=== PATIENT | female | born 1985 | race Caucasian/White ===

== ENCOUNTER 2022-08-05 16:05 | Emergency (ER) | payer OTHER ==
[2022-08-05 16:12] VITALS: BP 130/74; PULSE 85; RESP 18; TEMP 98.5; BMI 23.1
== END 2022-08-05 17:31 | disposition home or self-care (01) ==
LOC: JER 16:05
DX: R51.9 Headache, unspecified (principal); R22.0 Localized swelling, mass and lump, head; K08.89 Other specified disorders of teeth and supporting structures; K04.7 Periapical abscess without sinus
CPT/HCPCS: 99283-25

== ENCOUNTER 2023-11-15 13:01 | Emergency (ER) | payer BC, OTHER ==
[2023-11-15 13:07] VITALS: BP 136/80; PULSE 92; RESP 19; TEMP 98.4; BMI 23.6
[2023-11-15] MEDS ORDERED: LIDOCAINE 4% PATCH TP ONE (13:47)
[2023-11-15] MEDS ORDERED: KETOROLAC TROMETHAMINE 30 MG/1 ML VIAL ONE (13:48)
[2023-11-15 13:50] LABS: EPI CELLS 15 /uL (0-25.1); HYALINE CASTS 0 /uL (0-3.1); URINE APPEARANCE CLEAR; URINE BACTERIA 75 /uL (0-1359); URINE BILIRUBIN NEGATIVE (NEGATIVE); URINE COLOR YELLOW; URINE GLUCOSE (UA) NEGATIVE (NEGATIVE); URINE KETONE NEGATIVE (NEGATIVE); URINE LEUK ESTERASE NEGATIVE (NEGATIVE); URINE NITRITE NEGATIVE (NEGATIVE); URINE PROTEIN NEGATIVE (NEGATIVE); URINE RBC 18 /uL (0-23.9); URINE UROBILINOGEN 0.2 mg/dL (0.2-1.0); URINE WBC 2 /uL (0-25.8)
[2023-11-15] MEDS: KETOROLAC TROMETHAMINE 30 MG/1 ML VIAL IM ONE (13:53)
[2023-11-15] MEDS: LIDOCAINE 4% PATCH TP ONE (13:53)
[2023-11-15 13:54] LABS: HCG,QUALITATIVE URINE Negative
[2023-11-15] MEDS ORDERED: LIDOCAINE PATCH REMOVAL MC ONE (22:00)
== END 2023-11-15 14:55 | disposition home or self-care (01) ==
LOC: JERFT 13:01
PROC: 3E0233Z Introduction of Anti-inflammatory into Muscle, Percutaneous Approach (ICD-10-PCS; principal; 2023-11-15)
DX: M54.50 Low back pain, unspecified (principal); M62.830 Muscle spasm of back
CPT/HCPCS: 81003; 84703; 99284-25